=== PATIENT | female | born 1950 | race Caucasian/White ===

== ENCOUNTER 2017-04-15 14:58 | Emergency (ER) | payer MEDICARE ==
[~2017-04-15] VITALS: Ht 154.9 cm; Wt 49.9 kg
[~2017-04-15 14:58] MED LIST: CRESTOR20 MG PO; FOSAMAX70 MG PO
[2017-04-15] MEDS ORDERED: SERTRALINE HYDR50 MG PO (15:05)
[2017-04-15] MEDS ORDERED: ATORVASTATIN CA40 M1 PO (15:05)
[2017-04-15 15:33] LABS: BASO % 0.5 % (0.0-1.0); HEMATOCRIT 39.4 % (37.0-47.0); HEMOGLOBIN 13.4 g/dl (12.0-16.0); LYMPH # 0.5 10*3/uL (1.3-4.4); LYMPH % 12.6 % (27.0-41.0); MEAN CELL VOLUME 90.4 fl (81.0-99.0); MEAN CORPUSCULAR HGB 30.7 pg (27.0-31.0); MEAN PLATELET VOLUME 9.1 fl (9.6-12.3); MONO # 0.5 10*3/uL (0.1-1.0); MONO % 12.9 % (3.0-9.0); NEUT % 73.8 % (47.0-73.0); PLATELET COUNT AUTOMATED 167 10*3/uL (130-400); RED BLOOD COUNT 4.36 10*6/uL (4.10-5.10); RED CELL DISTRI WIDTH 12.7 % (0-14.5)
[2017-04-15 15:48] LABS: ALBUMIN 3.7 gm/dl (3.1-4.5); ALKALINE PHOSPHATASE 79 U/L (45-117); BILIRUBIN, TOTAL 0.5 mg/dl (0.2-1.0); BUN 10 mg/dl (7-24); CARBON DIOXIDE 29 mmol/L (21-32); CHLORIDE 102 mmol/L (98-107); EST GLOM FILT AFRICAN AMERICAN > 60 ml/min; GLUCOSE 98 mg/dL (65-99); POTASSIUM 3.7 mmol/L (3.5-5.1); SGOT/AST 36 IU/L (3-35); SGPT/ALT 33 U/L (12-78); SODIUM 136 mmol/L (136-145)
[2017-04-16 16:10] LABS: LYME AB/TOTAL IMMUNOGLOBULINS <0.91 ISR (0.00-0.90)
== END 2017-04-15 16:33 | disposition home or self-care (01) ==
LOC: ED 14:58
PROVIDERS: Nurse Practitioner Family
DX: B34.9 Viral infection, unspecified (principal); Z79.899 Other long term (current) drug therapy; Z91.010 Allergy to peanuts; Z88.2 Allergy status to sulfonamides

== ENCOUNTER 2025-09-22 09:17 | Emergency (ER) | payer MEDICARE ==
[~2025-09-22] VITALS: Ht 154.9 cm; Wt 47.2 kg
[~2025-09-22 09:17] MED LIST changes: +ATORVASTATIN CA40 M1 PO; +SERTRALINE HYDR50 MG PO
[2025-09-22] MEDS ORDERED: SODIUM CHLORIDE 0.9% 500 ML IV ONE (09:40)
[2025-09-22 09:56] LABS: BASO # 0.1 10*3/uL (0.0-0.1); BASO % 1.2 % (0.0-1.0); EOS # 0.2 10*3/uL (0.0-0.4); EOS % 5.5 % (1.0-4.0); MEAN CELL VOLUME 93.5 fl (81.0-99.0); MEAN CORPUSCULAR HGB 31.0 pg (27.0-31.0); MEAN PLATELET VOLUME 9.7 fl (9.6-12.3); MONO # 0.5 10*3/uL (0.1-1.0); MONO % 11.3 % (3.0-9.0); NEUT # 2.4 10*3/uL (2.3-7.9); NEUT % 58.9 % (47.0-73.0); NUCLEATED RED BLOOD CELL 0.0 % (0.0-0.0); NUCLEATED RED BLOOD CELL 0.0 10*3/uL (0.0-0.0); PLATELET COUNT AUTOMATED 222 10*3/uL (130-400); RED CELL DISTRI WIDTH 12.8 % (0-14.5)
[2025-09-22 10:16] LABS: BUN 6 mg/dl (9-23); SGPT/ALT 16 U/L (5-49)
[2025-09-22 10:53] LABS: BILIRUBIN Negative (Negative); BLOOD Negative (Negative); CLARITY Clear (Clear); COLOR Yellow (Yellow); KETONE Negative (Negative); LEUKO ESTERASE Negative (Negative); NITRITE Negative (Negative); PH 7.0 (4.5-8.0); SPECIFIC GRAVITY 1.010 (1.001-1.030); UROBILINOGEN 0.2 E.U./dl (0.0-1.0)
[2025-09-22 11:25] LABS: BACTERIA TRACE; EPITHELIAL CELLS 0-2
[2025-09-22] MEDS ORDERED: REGLAN10 M1 PO (12:11)
[2025-09-22] MEDS ORDERED: Ondansetron4 MG PO (12:11)
== END 2025-09-22 12:24 | disposition home or self-care (01) ==
LOC: ED 09:17
PROVIDERS: Emergency Medicine
DX: A08.4 Viral intestinal infection, unspecified (principal); Z91.010 Allergy to peanuts; Z88.2 Allergy status to sulfonamides; Z79.899 Other long term (current) drug therapy